=== PATIENT | male | born 1935 | race Two or more races ===

== ENCOUNTER 2020-02-23 12:37 | Emergency (ER) | payer MEDICARE ==
[~2020-02-23] VITALS: Ht 172.7 cm; Wt 59.0 kg
--- NOTE | 2020-02-23 12:50 | NUR ---
ED Nurse Note: Pt BIBA RA92 c/o shortness of breath started today. Per EMS, pt was satting on 89% on RA, placed on 2L nc, O2 sat improved to 99%. Hx of emphysema. Noted with mild cough. Afebrile. AAOx4, verbally responsive. IV line on left forearm 20g inserted by paramedics. ERPA at bedside.
--- NOTE | 2020-02-23 13:15 | NUR ---
ED Nurse Note: Blood and covid swab sent to lab.
[2020-02-23 13:40] VITALS: BP 103/59
[2020-02-23 14:02] LABS: ANION GAP 6 mmol/L (5-15); BLOOD UREA NITROGEN 23 mg/dL (7-18); CALCIUM 7.8 MG/DL (8.5-10.1); CARBON DIOXIDE 26 MMOL/L (21-32); CHLORIDE 104 MMOL/L (98-107); CREATININE 0.8 MG/DL (0.55-1.30); POTASSIUM 3.8 MMOL/L (3.5-5.1); SODIUM 136 MMOL/L (136-145)
[2020-02-23 14:03] LABS: INR 1.1 (0.9-1.1)
[2020-02-23 14:07] LABS: HEMATOCRIT 30.4 % (42.0-52.0); HEMOGLOBIN 10.5 G/DL (14.2-18.0); MEAN CORPUSCULAR VOLUME 101 FL (80-99); PLATELET COUNT 65 K/UL (150-450); RED BLOOD COUNT 3.02 M/UL (4.70-6.10); RED CELL DISTRIBUTION WIDTH 18.8 % (11.6-14.8); WHITE BLOOD COUNT 7.3 K/UL (4.8-10.8)
[2020-02-23 14:17] LABS: ALANINE AMINOTRANSFERASE 29 U/L (12-78); ALBUMIN 2.4 G/DL (3.4-5.0); ALBUMIN/GLOBULIN RATIO 0.6 (1.0-2.7); ALKALINE PHOSPHATASE 94 U/L (46-116); ASPARTATE AMINO TRANSFERASE 55 U/L (15-37); FERRITIN 212 NG/ML (8-388); LACTATE DEHYDROGENASE 303 U/L (81-234)
[2020-02-23] MEDS ORDERED: Omnipaque 350 100ml vial INJ PRN (14:45)
--- NOTE | 2020-02-23 14:55 | NUR ---
ED Nurse Note: Pt was taken to CT via shar, accompanied by a tech.
--- NOTE | 2020-02-23 15:09 | NUR ---
ED Nurse Note: Pt returned from CT, not in any distress.
--- NOTE | 2020-02-23 15:12 | Diagnostic Imaging Report ---
Indication: Reason For Exam: SOB Technique: Single AP view of the chest. Comparison: None. Findings: Heart is not enlarged when accounting for projection and technique. There is mild pulmonary vascular congestion. There are streaky bibasilar airspace opacities. There is biapical scarring. No pneumothorax. No acute osseous abnormality. IMPRESSION: Pulmonary vascular congestion with streaky bibasilar airspace opacities which could represent combination of edema and atelectasis but pneumonia should be excluded clinically.
--- NOTE | 2020-02-23 15:20 | Emergency Room Report ---
History of Present Illness General Chief Complaint: Dyspnea/Respdistress Source: EMS (Jonna Flores) Present Illness HPI 84 YO male presents to the ED c/o increased SOB and personal concern for PNA. pt. reports hx of COPD/Emphysema on home O2 with hx of frequent PNA. Pt. reports last bout of PNA was 1 year ago. He reports increased sputum production. He denies hemoptysis. He denies fevers or chills. He denies swelling of the LE's. Pt. denies CP, Dizziness, Syncope, or weakness. Pt. reports he lives at home with his , and his children do not live close by. (Jonna Flores) Allergies: Coded Allergies: No Known Allergies (Unverified , 02/23/20) COVID-19 Screening Contact w/high risk pt: No Experienced COVID-19 symptoms?: Yes COVID-19 Testing performed AIRPORT CONTROL OPERATOR: No - unk (Jonna Flores) Patient History Past Medical History: see triage record, COPD Past Surgical History: none Pertinent Family History: none Reviewed Nursing Documentation: PMH: Agreed; PSxH: Agreed (Jonna Flores) Review of Systems All Other Systems: negative except mentioned in HPI (Jonna Flores) Physical Exam Vital Signs Date Time Temp Pulse Resp B/P (MAP) Pulse Ox O2 Delivery O2 Flow Rate FiO2 02/23/20 12:32 98.8 94 18 103/59 (74) 100 Non-Rebreather 02/23/20 13:30 3.0 97 Sp02 EP Interpretation: reviewed, normal General Appearance: well appearing, no apparent distress, alert, GCS 15, non- toxic, thin, Chronically Ill Head: normocephalic, atraumatic Eyes: bilateral eye normal inspection, bilateral eye PERRL ENT: hearing grossly normal, normal pharynx, normal voice Neck: full range of motion Respiratory: chest non-tender, lungs clear, normal breath sounds, no accessory muscle use, no wheezing, speaking full sentences, other - barrel chest. Wet cough - intermittent, 2L NS, not tachypneic, no increased respiratory effort. Cardiovascular #1: regular rate, rhythm, no edema, normal capillary refill Gastrointestinal: non tender, soft, no guarding, no rebound Musculoskeletal: normal range of motion, gait/station normal, non-tender Neurologic: alert, motor strength/tone normal, oriented x3, sensory intact, res ponsive, speech normal, grossly normal Psychiatric: judgement/insight normal Skin: no rash, normal color (Jonna Flores) Medical Decision Making PA Attestation Dr. Lenz is my supervising Physician whom patient management has been discussed with. (Jonna Flores) Diagnostic Impression: Primary Impression: Acute exacerbation of emphysema Additional Impressions: Emphysema/COPD Qualified Codes: J43.9 - Emphysema, unspecified Abdominal ascites Qualified Codes: R18.8 - Other ascites Elevated d-dimer COVID-19 ruled out by laboratory testing ER Course 84 YO male presents to the ED c/o increased SOB and personal concern for PNA. pt. reports hx of COPD/Emphysema on home O2 with hx of frequent PNA. Pt. reports last bout of PNA was 1 year ago. He reports increased sputum production. He denies hemoptysis. He denies fevers or chills. He denies swelling of the LE's. Pt. denies CP, Dizziness, Syncope, or weakness. Pt. reports he lives at home with his , and his children do not live close by. Ddx considered but are not limited to KS, PE, atelectasis, CHF, asthma, anxiety, pneumonia, costochondritis, chest wall pain, Acute depression of respiratory drive, Vital signs: are WNL, pt. is afebrile H&PE are most consistent with emphyseama exacerbation Vs acute URI -- This is a well appearing 84 year old who is in no acute distress, his oxygen saturation is within normal limits, He is on NC 2Liters /per min. Wet cough - intermittent, 2L NS, not tachypneic, no increased respiratory effort. The patient is not in any respiratory distress at this time ORDERS: -EKG: NSR 70 beats per minute, no acute ST changes -CBC: anemia, no leukocytosis, no leukopenia - CMP: Electrolytes okay, glucose of 115. Calcium of 7.8. - D-Dimer: elevated 11.0 BNP: 447 - CRP : elevated 10 -Troponin: 0.004 - PT/PTT: 1.1, 11 -Ferritin: 212 Lactate dehydrogenase: 303 - RAPID COVID: Negative -CTA due to elevated D-Dimer, and negative COVID Test: ED INTERVENTIONS: -Pt placed on 2L NS - 750mg Levaquin PO --[facility] was contacted via phone for pt. lab. hx and discussion regarding elevated D-Dimer, Per Houghton and telephone conversation facilitated by Dr. Leslie, Previous D-Dimer was 12. DISCHARGE: At this time pt. is stable for d/c to home.. Will provide printed patient care instructions, and any necessary prescriptions. Care plan and follow up instructions have been discussed with the patient prior to discharge. Labs Test 02/23/20 13:15 White Blood Count 7.3 K/UL (4.8-10.8) Red Blood Count 3.02 M/UL (4.70-6.10) Hemoglobin 10.5 G/DL (14.2-18.0) Hematocrit 30.4 % (42.0-52.0) Mean Corpuscular Volume 101 FL (80-99) Mean Corpuscular Hemoglobin 34.6 PG (27.0-31.0) Mean Corpuscular Hemoglobin Concent 34.4 G/DL (32.0-36.0) Red Cell Distribution Width 18.8 % (11.6-14.8) Platelet Count 65 K/UL (150-450) Mean Platelet Volume 8.5 FL (6.5-10.1) Neutrophils (%) (Auto) % (45.0-75.0) Lymphocytes (%) (Auto) % (20.0-45.0) Monocytes (%) (Auto) % (1.0-10.0) Eosinophils (%) (Auto) % (0.0-3.0) Basophils (%) (Auto) % (0.0-2.0) Differential Total Cells Counted 100 Neutrophils % (Manual) 76 % (45-75) Lymphocytes % (Manual) 15 % (20-45) Monocytes % (Manual) 9 % (1-10) Eosinophils % (Manual) 0 % (0-3) Basophils % (Manual) 0 % (0-2) Band Neutrophils 0 % (0-8) Platelet Estimate Decreased Platelet Morphology Normal Hypochromasia 1+ Anisocytosis 1+ Prothrombin Time 11.9 SEC (9.30-11.50) Prothromb Time International Ratio 1.1 (0.9-1.1) Activated Partial Thromboplast Time 26 SEC (23-33) D-Dimer 11.05 mg/L FEU (0.00-0.49) Sodium Level 136 MMOL/L (136-145) Potassium Level 3.8 MMOL/L (3.5-5.1) Chloride Level 104 MMOL/L (98-107) Carbon Dioxide Level 26 MMOL/L (21-32) Anion Gap 6 mmol/L (5-15) Blood Urea Nitrogen 23 mg/dL (7-18) Creatinine 0.8 MG/DL (0.55-1.30) Estimat Glomerular Filtration Rate > 60 mL/min (>60) Glucose Level 115 MG/DL (74-106) Lactic Acid Level 2.00 mmol/L (0.4-2.0) Calcium Level 7.8 MG/DL (8.5-10.1) Ferritin 212 NG/ML (8-388) Total Bilirubin 1.0 MG/DL (0.2-1.0) Aspartate Amino Transf (AST/SGOT) 55 U/L (15-37) Alanine Aminotransferase (ALT/SGPT) 29 U/L (12-78) Alkaline Phosphatase 94 U/L (46-116) Lactate Dehydrogenase 303 U/L (81-234) Troponin I 0.004 ng/mL (0.000-0.056) C-Reactive Protein, Quantitative 10.9 mg/dL (0.00-0.90) Pro-B-Type Natriuretic Peptide 447 pg/mL (0-125) Total Protein 6.3 G/DL (6.4-8.2) Albumin 2.4 G/DL (3.4-5.0) Globulin 3.9 g/dL Albumin/Globulin Ratio 0.6 (1.0-2.7) (Jonna Flores) ER Course Please see above note. Patient was examined by me. Concern over elevated D-dimer led pulmonary CT angiogram and discussion with Yon. Discussion with H[facility] reveals recent evaluation and treatment for pneumonia and GI bleeding revealed a D-dimer of 12. Discussion with daughter. Patient is on home oxygen. Based on this I feel this patient is stable for outpatient observation and treatment. Marvin assures that there will be close outpatient follow-up. (Roly Leslie MD) EKG Diagnostic Results Troponin ordered: Yes When was troponin ordered?: Feb 23, 2020 EKG Time: 13:32 Rate: normal Rhythm: NSR ST Segments: no acute changes ASA given to the pt in ED: No PA Scribe Text This Interpretation was scribed by FADIA Flores. (Jonna Flores) Rhythm Strip Diag. Results EP Interpretation: yes Rhythm: NSR, no PVC's, no ectopy (Roly Leslie MD) Chest X-Ray Diagnostic Results Chest X-Ray Diagnostic Results : Chest X-Ray Ordered: Yes # of Views/Limited/Complete: 1 View Indication: Shortness of Breath EP Interpretation: Yes PA Xray: Interpretation reviewed, by supervising MD, and agrees with findings. Interpretation: no effusion, no pneumothorax, other - Patchy infiltrates bilaterally Impression: Other Electronically Signed by: Jonna Flores PA-C (Jonna Flores) Chest X-Ray Diagnostic Results : Electronically Signed by: Heather Abdi documentation of Xray reviewed by me and is accurate, Roly Leslie MD (Roly Leslie MD) CT/MRI/US Diagnostic Results CT/MRI/US Diagnostic Results : Imaging Test Ordered: CTA chest w. contrast Impression " No evidence of pulmonary embolism. Cardiomegaly with right ventricular enlargement. Moderate emphysema, suggestion of early fibrotic changes in the lung bases raising the possibility of combined pulmonary fibrosis and emphysema. Cirrhosis with large volume ascites.." --Per official radiology report- Please see report for specific details. (Jonna Flores) Last Vital Signs Date Time Temp Pulse Resp B/P (MAP) Pulse Ox O2 Delivery O2 Flow Rate FiO2 02/23/20 13:40 98.8 18 103/59 100 Nasal Cannula 3.0 97 02/23/20 13:30 68 Status: unchanged (Jonna Flores) Last Vital Signs Date Time Temp Pulse Resp B/P (MAP) Pulse Ox O2 Delivery O2 Flow Rate FiO2 02/23/20 19:07 98.8 81 19 118/67 100 Room Air 02/23/20 13:40 3.0 97 Status: improved (Roly Leslie MD) Disposition: HOME, SELF-CARE Condition: Stable Scripts Guaifenesin/Dextromethorphan (MUCINEX DM ER 1,200-60 MG TAB) 1 Each Tbmp.12hr 1 EACH PO Q12HR for 5 Days, #10 TAB Prov: Jonna Flores 02/23/20 Levofloxacin* (LEVOFLOXACIN*) 750 Mg Tablet 750 MG ORAL DAILY for 4 Days, #4 TAB Prov: Jonna Flores 02/23/20 Prednisone* (PREDNISONE*) 20 Mg Tablet 20 MG ORAL DAILY for 5 Days, #5 TAB 0 Refills Prov: Jonna Flores 02/23/20 Albuterol Sulfate* (Albuterol Sulfate Hfa*) 8.5 Gm Hfa.aer.ad 2 PUFF INH Q3H, #1 INH Prov: Jonna Flores 02/23/20 Referrals: [facility] (PCP) Patient Instructions: Shortness of Breath, [id number] Jonna Flores Feb 23, 2020 15:20 Roly Leslie MD Feb 23, 2020 16:55
--- NOTE | 2020-02-23 16:00 | Diagnostic Imaging Report ---
EXAM: CTA Chest w Contrast CLINICAL HISTORY: Reason For Exam: Chest PAIN. TECHNIQUE: CT angiogram of the pulmonary vasculature performed with IV contrast. 2-D and 3-D reformat images obtained. All CT scans at this facility are performed using dose modulation techniques as appropriate to a performed exam including the following: automated exposure control with adjustment of the mA and/or kV according to patient size. RADIATION DOSE: CTDIvol: 29.4 mGy DLP: 95.5 mGy-cm Dose information generated by the CT scanner is available in PACS. COMPARISON: None FINDINGS: There is adequate opacification of the pulmonary vascularity. There is no central filling defects or thrombus identified. Peripheral subsegmental branches also appear unremarkable. The aorta is normal in caliber and there is no intimal flap or dissection. Mild thoracic aortic catheter tract calcification. The heart is mildly enlarged, with preferential right ventricular dilatation. Mild coronary artery atherosclerotic calcifications. Thyroid gland is mildly heterogeneous. Respiratory motion artifact limits complete evaluation of the lung parenchyma. Moderate to severe biapical pleural parenchymal scarring. There is moderate emphysema. There is bibasilar interstitial reticulation and multifocal bronchiectasis. The liver is cirrhotic. There is partially visualized large volume ascites. Moderate hiatal hernia. Patient is cachectic. There are multilevel discogenic degenerative changes of the visualized spine. IMPRESSION: 1. No evidence of pulmonary embolism. 2. Cardiomegaly with right ventricular enlargement. 3. Moderate emphysema; suggestion of early fibrotic changes in the lung bases, raising the possibility of combined pulmonary fibrosis and emphysema (CPFE). 4. Cirrhosis with large volume ascites.
[2020-02-23] MEDS ORDERED: Levofloxacin 750mg tab ORAL ONE (17:30)
[2020-02-23] MEDS ORDERED: LEVOFLOXACIN750 MG ORAL (17:45)
[2020-02-23] MEDS ORDERED: MUCINEX DM ER1 EACH PO (17:45)
[2020-02-23] MEDS ORDERED: PREDNISONE20 MG ORAL (17:45)
[2020-02-23] MEDS ORDERED: ALBUTEROL SULF8.5 G1 INH (17:45)
[2020-02-23 19:07] VITALS: BP 118/67
--- NOTE | 2020-02-23 19:07 | NUR ---
ED Nurse Note: Pt cleared by ERMD for discharge. DC instructions/prescription was given and explained to pt and verbalized understanding of teachings. All medical deviecs such as ID band and IV line removed. Pt is AAO x4, picked up by 2 EMT and left with all personal belongings.
== END 2020-02-23 19:07 | disposition home or self-care (01) ==
LOC: EDBD 12:37 → EMR 14:06
DX: J43.9 Emphysema, unspecified (principal); R18.8 Other ascites; R79.1 Abnormal coagulation profile; Z99.81 Dependence on supplemental oxygen; Z79.899 Other long term (current) drug therapy
CPT/HCPCS: 36415; 71045; 71275; 80053; 82728; 83605; 83615; 83880; 84484; 85007; 85025; 85379; 85610; 85730; 86140; 93005; 99284; Q9967; U0002